=== PATIENT | male | born 1960 | race Hispanic/Latino ===

== ENCOUNTER 2019-10-14 23:09 | Emergency (ER) | payer OTHER ==
[~2019-10-14] VITALS: Ht 170.2 cm; Wt 79.4 kg
[2019-10-14] MEDS ORDERED: METOPROLOL TARTRATE INJ 1 MG/ML VIAL ONE (23:55)
[2019-10-15] MEDS ORDERED: METOPROLOL TARTRATE INJ 1 MG/ML VIAL IV ONE (00:15)
== END 2019-10-15 00:41 | disposition home or self-care (01) ==
LOC: FSED 23:09
DX: I10 Essential (primary) hypertension (principal)
CPT/HCPCS: 80053; 85025; 99283